=== PATIENT | male | born 1945 | race Two or more races ===

== ENCOUNTER 2019-04-16 12:23 | Emergency (ER) | payer MEDICARE ==
[~2019-04-16] VITALS: Ht 157.5 cm; Wt 68.0 kg
[~2019-04-16 12:23] MED LIST: AMLO10TA PO; BENA40TA8 PO; FLEC100T2 PO; WARF4TAB69 PO
[2019-04-16 15:29] VITALS: BP 151/98
== END 2019-04-16 16:13 | disposition home or self-care (01) ==
LOC: ER 12:24
DX: M79.604 Pain in right leg (principal); M79.605 Pain in left leg; I48.91 Unspecified atrial fibrillation; I10 Essential (primary) hypertension; E11.9 Type 2 diabetes mellitus without complications; Z79.899 Other long term (current) drug therapy; Z79.01 Long term (current) use of anticoagulants
CPT/HCPCS: 99283

== ENCOUNTER 2019-05-08 11:31 | Emergency (ER) | payer SELFPAY ==
[~2019-05-08] VITALS: Ht 157.5 cm; Wt 61.4 kg
--- NOTE | 2019-05-08 13:05 | NUR ---
PT IS RESTING QUIETLY ON GURNEY, FAMILY AT BEDSIDE, HAS BEEN EVALUATED BY PROVIDER AND INSTRUCTED NOT TO TAKE COUMADIN TODAY, HAVE LEVEL RECHECKED TOMORROW, PT VERBALIZED UNDERSTANDING
[2019-05-08] MEDS ORDERED: phytonadione 10 MG/1 ML amp PO ONE (13:10)
[2019-05-08 13:34] VITALS: BP 124/81
== END 2019-05-08 13:58 | disposition home or self-care (01) ==
LOC: ER 11:32
DX: R79.1 Abnormal coagulation profile (principal); I48.91 Unspecified atrial fibrillation; I10 Essential (primary) hypertension; E11.9 Type 2 diabetes mellitus without complications; Z79.01 Long term (current) use of anticoagulants; Z79.899 Other long term (current) drug therapy
CPT/HCPCS: 36415; 85610; 99283; J3430

== ENCOUNTER 2025-09-14 09:22 | Emergency (ER) | payer MEDICARE, MEDICAID ==
[~2025-09-14] VITALS: Ht 162.6 cm; Wt 64.0 kg
[~2025-09-14 09:22] MED LIST changes: -BENA40TA8 PO; +BENA40TA90 PO
--- NOTE | 2025-09-14 10:13 | RADIOLOGY REPORT ---
CT CT HEAD INDICATION: FALL ON BLOOD THINNER WITH HEAD STRIKE EXAM DATE: 09/14/2025 09:42 AM COMPARISON: None TECHNIQUE: CT of the head without intravenous contrast. RADIATION DOSE: CTDIvol: 608mGy, DLP: 1308 mGy*cm FINDINGS: There is no intracranial hemorrhage. There is no extra-axial fluid, mass, mass effect or midline shift. The ventricles are midline and normal in size. Basilar cisterns are patent. There is moderate global cerebral volume loss. Urpe-nu-zqjxvbad periventricular and subcortical white matter chronic microv ascular ischemic changes. The paranasal sinuses and mastoids are well-pneumatized. Imaged portion of the orbits are unremarkable. IMPRESSION: No intracranial hemorrhage or mass effect. Mrla-ka-wayjzwjw chronic microvascular ischemic changes. Moderate global cerebral volume loss.
--- NOTE | 2025-09-14 10:18 | RADIOLOGY REPORT ---
EXAM: CT CT CERVICAL SPINE INDICATION: FALL ON BLOOD THINNER WITH HEAD STRIKE EXAM DATE: 09/14/2025 09:44 AM COMPARISON: None TECHNIQUE: Multiple axial CT images of the cervical spine were obtained using bone algorithm. Axial and coronal reformatting was done. Bone and soft tissue windows were reviewed. Radiation Dose Information: CT Dose: CTDI volume is 17.37 mGy. Dose-length product is 394.64 mGy*cm FINDINGS: There is no acute displaced fracture. There are degenerative changes of the cervical spine characterized by endplate osteophytosis and intervertebral disc space narrowing. There is grade 1 anterolisthesis of C3 on C4. A Schmorl's node encroaches upon the superior endplate of C6. Disc osteophyte complexes at C5-6 and C6-7 efface the thecal sac. Degenerative uncovertebral and facet hypertrophy contribute to mild multilevel neural foraminal narrowing. The paraspinal soft tissues are unremarkable. IMPRESSION: 1. No acute displaced fracture. 2. Degenerative changes of the cervical spine as detailed. 3. All CT scans at this medical facility are performed using dose modulation techniques as appropriate to a performed exam including the following: Automated exposure control was utilized; adjustment of the MA and/or KV according to patient size; and use of iterative reconstruction technique.
--- NOTE | 2025-09-14 11:28 | Physician Documentation ---
History of Present Illness ~ Chief Complaint: Mechanical Fall Stated Complaint: FALL/HEAD STRIKE/POS THINNERS/SUNDAY NIGHT Primary Medical Doctor: KELBY; [facility] HPI A 80 years old male with history of AFib, hypertension, diabetes, hyperlipidemia came to the ED with ground level mechanical fall. On 09/11/25, he woke up in the middle of the night to use the restroom, he was returning from restroom he had ground level mechanical fall, hit his back of head with metalic door frame and had mild abrasions on head. He denies loss of consciousness, confusion, lightheadedness, palpitations, chest pain, SOB, swelling of legs. Patient has mild pain left side of upper back from lying to standing position and walks up with minimal assistance. Tetanus within 5 Years?: Yes Medication Reconciliation Allergies: Coded Allergies: Sulfa (Sulfonamide Antibiotics) (Unverified Allergy, Unknown, 09/14/25) Scheduled Amlodipine Besylate (Amlodipine Besylate), 1 TABLET PO DAILY, (Reported) Benazepril HCl (Benazepril HCl), 1 TABLET PO DAILY, (Reported) Flecainide Acetate (Flecainide Acetate), 1 TABLET PO BID, (Reported) Warfarin Sodium (Warfarin Sodium), 1 TABLET PO DAILY, (Reported) Past Medical History Past Medical History: (AFib, hypertension, diabetes, hyperlipidemia), Arrhythmia, Atrial Fibrillation, Hypertension, Diabetes Other Past Medical History: Afib, HTN, DM, HLD Past Surgical History: no surgical history Patient History: Patient reports no known family medical history. Alcohol Use: None Lives with: Spouse Lives In: Home Physical Exam Vital Signs: Temperature: 98.2, Source: Temporal, Heart Rate: 98, Respiratory Rate: 18, BP: 129/71, Pulse Oximetry: 100, Weight: 64.000 Oxygen Flow Rate: 0 Physical Exam Awake , alert and oriented to time,place, person,not in distress HEENT: Atraumatic, normocephalic, PERRLA, EOMI, anicteric sclera ; pink conjunctiva, moist mucos membranes Neck: Trachea midline. Supple, normal range of motion, no JVD, no lymphadenopathy Chest and Respiratory: Equal breath sounds bilaterally, no tachypnea, wheezing, ronchi,rubs .Chest wall is symmetric and without deformity. Cardiac: S1, S2 heard,Regular rate and rhythm, no murmurs ,no gallops, no rubs. Abdomen: Soft, No tenderness, No guarding or rigidity, Higgins's sign negative. normal bowel sounds x4 quadrant, no hepatosplenomegaly MSK: No pain or tenderness or swelling in the spine or head region. Range of motion of all extremities are normal. There is no joint pain or joint swelling or joint erythema. There is no muscle pain or tenderness or swelling. Extremities: warm, well-perfused, No cyanosis, clubbing, 2+ pulses felt Neurological: Mental status exam: alert and consciousness, orientation, memory, speech - Cranial nerve test: Cranial nerves II-XII intact. - Motor system: Normal Nutrition, normal tone, Power 5/5, no involuntary movements - Sensory system: Intact - Reflex testing: Biceps, triceps and knee reflexes 2+ - Cerebellar: Normal Skin: Warm and dry Psychiatry: Affect and mood are normal Progress Progress Note A 80 years old male with history of AFib, hypertension, diabetes, hyperlipidemia came to the ED with ground level mechanical fall. On 09/11/25, he woke up in the middle of the night to use the restroom, he was returning from restroom he had ground level mechanical fall, hit his back of head with metalic door frame and had mild abrasions on head. He denies loss of consciousness, confusion, lightheadedness, palpitations, chest pain, SOB, swelling of legs. Patient has mild pain left side of upper back from lying to standing position and walks up with minimal assistance. CT head-no acute intracranial abnormality CT spine- chronic degenerative changes Vitals are stable Ordered EKG - Afib with No ST/T wave changes CBC - normal CMP - normal Mg - - normal mild troponin elevation - insignificant- EKG shows Afib, No ST/T wave changes Results/Orders Results/Orders Completed Orders - REGGIE CORREA RES Electrocardiogram (09/14/25 ) Cbc/Diff (09/14/25 11:21) CMP (09/14/25 11:21) MG (09/14/25 11:21) Hs Troponin I W Calculations (09/14/25 11:21) Vital Signs 09/14/25 09/14/25 09/14/25 09/14/25 09:33 11:32 11:37 13:11 Temp 98.2 Pulse 98 90 68 Resp 18 16 16 18 B/P (MAP) 129/71 135/90 (105) 130/88 (102) Pulse Ox 100 99 98 O2 Flow Rate 0 0 0 Laboratory Tests Test 09/14/25 11:32 09/14/25 12:23 White Blood Count 5.4 Red Blood Count 4.29 L Hemoglobin 14.5 Hematocrit 42.3 Mean Corpuscular Volume 98.7 H Mean Corpuscular Hemoglobin 33.7 H Mean Corpuscular Hemoglobin Concent 34.2 Red Cell Distribution Width 14.9 H Platelet Count 172 Mean Platelet Volume 9.4 Neutrophils (%) (Auto) 68.8 Lymphocytes (%) (Auto) 19.3 L Monocytes (%) (Auto) 10.6 Eosinophils (%) (Auto) 0.9 Basophils (%) (Auto) 0.4 Neutrophils # (Auto) 3.7 Lymphocytes # (Auto) 1.0 L Monocytes # (Auto) 0.6 Eosinophils # (Auto) 0.0 Basophils # (Auto) 0.0 CBC Comment Sodium Level 138 Potassium Level 4.3 Chloride Level 104 Carbon Dioxide Level 24.7 Anion Gap 9 Blood Urea Nitrogen 23 H Creatinine 1.44 H Estimated GFR/1.73 m2 47 BUN/Creatinine Ratio 16.0 Glucose Level 152 H Calcium Level 9.2 Magnesium Level 2.1 Total Bilirubin 0.9 Aspartate Amino Transf (AST/SGOT) 49 H Alanine Aminotransferase (ALT/SGPT) 31 Alkaline Phosphatase 37 L Troponin I High Sensitivity 92 *H 93 *H Total Protein 7.4 Albumin 3.5 Globulin 3.9 Albumin/Globulin Ratio 0.9 L Chemistry Comments Troponin I High Sens Percent Delta 1 Troponin I Hi Sens Absolute Change 1 Medical Decision Making Additional information obtaine: other Findings Afib, HTN,DM, HLD Differential Dx:Considerations: Include: Closed head injury, Fracture(s), Abrasion(s) Departure Disposition: 01 HOME / SELF CARE / HOMELESS Impression: Primary Impression: Ground-level fall Additional Impression: CKD (chronic kidney disease) stage 3, GFR 30-59 ml/min Additional Impression Text Additional Instructions: Tyelonol 325 mg Q8H orally, as needed Referrals: NO PRIMARY CARE PROVIDER (PCP) Signature Scribe Signature: No Scribe Attestation: Resident attestation The above note has been reviewed and supervised by a senior resident PGY2/PGY3 Patient was seen, examined and discussed with the attending physician Tiago Correa MD Internal Medicine Resident, PGY 1 REGGIE CORREA, RES Sep 14, 2025 11:27
--- NOTE | 2025-09-14 11:43 | ELECTROCARDIOGRAPH REPORT ---
[facility] Test Date: 2025-09-14 Test Time: 11:41:17 Pat Name: DONOVAN HIGHTOWER [facility]- [id number] Room: Gender: M Assistant Librarian: : 1945 Requested By: REGGIE GREENE Order Number: [id number] Reading MD: Measurements Intervals [place] Rate: 88 P: 0 VT: 0 QRS: 91 QRSD: 85 T: 14 QT: 353 QTc: 427 Interpretive Statements Atrial fibrillation Right axis deviation Low voltage, extremity leads Probable anteroseptal infarct, old Baseline wander in lead(s) V1 Please click the below link to view image of tracing.
[2025-09-14 11:45] LABS: MEAN PLATELET VOLUME 9.4 FL (7.4-10.4); RED CELL DISTRIBUTION WIDTH 14.9 % (11.5-14.5)
[2025-09-14 12:12] LABS: CREATININE 1.44 MG/DL (0.60-1.10); TOTAL CARBON DIOXIDE 24.7 MMOL/L (24-32); eCRCL 34 ML/MIN; eGFR 47 ML/MIN
[2025-09-14 14:26] VITALS: BP 144/93; PULSE 90; RESP 16; TEMP 98; O2SAT 98
== END 2025-09-14 14:27 | disposition home or self-care (01) ==
LOC: ER 09:23
DX: I12.9 Hypertensive chronic kidney disease with stage 1 through stage 4 chronic kidney disease, or unspecified chronic kidney disease (principal); E11.22 Type 2 diabetes mellitus with diabetic chronic kidney disease; N18.30 Chronic kidney disease, stage 3 unspecified; I48.91 Unspecified atrial fibrillation; E78.5 Hyperlipidemia, unspecified; Z88.2 Allergy status to sulfonamides; Z79.899 Other long term (current) drug therapy; Z79.01 Long term (current) use of anticoagulants; W18.30XA Fall on same level, unspecified, initial encounter; Y93.89 Activity, other specified; Y92.89 Other specified places as the place of occurrence of the external cause; Y99.8 Other external cause status
CPT/HCPCS: 36415; 70450; 72125; 80053; 83735; 84484; 85025; 93005; 99284